=== PATIENT | female | born 2005 | race Asian ===

== ENCOUNTER 2025-05-26 14:29 | Emergency (ER) | payer MEDICAID ==
[~2025-05-26] VITALS: Ht 160 cm; Wt 75.0 kg
[2025-05-26 14:32] VITALS: O2SAT 100
[2025-05-26 16:18] LABS: BASOPHILS % 1.0 % (0.0-2.0); EOSINOPHILS % 1.1 % (0.0-5.0); HEMATOCRIT. 39.5 % (36.0-48.0); HEMOGLOBIN. 12.6 g/dL (12.0-16.0); LYMPHOCYTES % 22.2 % (20.0-50.0); MEAN PLATELET VOLUME 11.2 fl (7.4-10.4); MONOCYTES % 5.7 % (2.0-8.0); NEUTROPHILS % 70.0 % (40.0-76.0); PLATELET 276 x1000/uL (130-400); RED BLOOD CELL COUNT 4.80 mill/uL (4.2-5.4); RED CELL DISTRIBUTION WIDTH 14.8 % (11.6-14.6)
[2025-05-26 16:32] LABS: CREATININE 0.9 mg/dL (0.6-1.0); UREA NITROGEN BLOOD 9 mg/dL (9-23)
[2025-05-26 16:33] LABS: ETHANOL BLOOD < 10 mg/dL (<10)
[2025-05-26 17:38] LABS: HCG SCREEN NEGATIVE
[2025-05-26 17:41] LABS: ASPARTATE AMINOTRANSFERASE 20 IU/L (<34)
[2025-05-26 17:42] LABS: BILIRUBIN DIRECT 0.2 mg/dL (<=3.0); BILIRUBIN TOTAL 0.7 mg/dL (0.1-1.0); PROTEIN TOTAL 8.8 g/dL (6.0-8.3)
[2025-05-26 18:01] LABS: CLARITY URINE CLEAR (CLEAR); COLOR URINE YELLOW (YELLOW); GLUCOSE URINE NEGATIVE (NEGATIVE); KETONES URINE 2+ (NEGATIVE); LEUKOCYTE ESTERASE URINE 1+ (NEGATIVE); NITRITE URINE POSITIVE (NEGATIVE); OCCULT BLOOD URINE 1+ (NEGATIVE); PH URINE 6.0 (4.5-8.0); PROTEIN URINE NEGATIVE (NEGATIVE); SPECIFIC GRAVITY URINE 1.015 (1.005-1.030); UROBILINOGEN URINE 1.0 E.U./dL (0.2-1.0)
[2025-05-26 18:07] LABS: *AMPHETAMINES SCREEN URINE NEGATIVE (NEGATIVE)
[2025-05-26 18:08] LABS: *BARBITURATES SCREEN URINE NEGATIVE (NEGATIVE); *BENZODIAZEPINES SCREEN URINE NEGATIVE (NEGATIVE); *COCAINE SCREEN URINE NEGATIVE (NEGATIVE); CANNABINOID URINE SCREEN NEGATIVE (NEGATIVE); ECSTASY MDMA SCREEN URINE NEGATIVE (NEGATIVE); METHADONE URINE SCREEN NEGATIVE (NEGATIVE); OPIATES URINE SCREEN NEGATIVE (NEGATIVE); PHENCYCLIDINE URINE SCREEN NEGATIVE (NEGATIVE)
[2025-05-26 18:11] LABS: SQUAMOUS EPITHELIAL CELL URINE 1+ /lpf (RARE/1+)
[2025-05-26 18:13] LABS: BACTERIA URINE 4+
[2025-05-27] MEDS: CEPHALEXIN 250MG CAPSULE PO SCH (00:30)
[2025-05-27] MEDS ORDERED: HYDROXYZINE 25MG TABLET PO PRN (09:15)
[2025-05-27 13:38] VITALS: BP 109/66; PULSE 96; RESP 16; TEMP 36.9; O2SAT 100
[2025-05-27] MEDS ORDERED: TRAZODONE HCL 50MG TABLET PO SCH (21:00)
[2025-05-28] MEDS ORDERED: OLANZAPINE 5MG TABLET ODT PO SCH (09:00)
== END 2025-05-27 13:28 ==
LOC: ER 14:42
DX: R45.851 Suicidal ideations (principal); F25.9 Schizoaffective disorder, unspecified; Z91.51 Personal history of suicidal behavior; Z79.899 Other long term (current) drug therapy
CPT/HCPCS: 80076; 80305; 80048; 81003; 81025; 80307; 80329; 80320; 84703; 83735; 85025; 36415; 93005; 99285; 87426; Z7610; A4606; G0480

== ENCOUNTER 2025-07-04 15:21 | Emergency (ER) | payer MEDICAID, OTHER ==
[~2025-07-04] VITALS: Ht 167.6 cm; Wt 75.0 kg
[2025-07-04 15:30] VITALS: O2SAT 100
[2025-07-04 16:32] LABS: *AMPHETAMINES SCREEN URINE NEGATIVE (NEGATIVE); *BARBITURATES SCREEN URINE NEGATIVE (NEGATIVE); *BENZODIAZEPINES SCREEN URINE NEGATIVE (NEGATIVE); *COCAINE SCREEN URINE NEGATIVE (NEGATIVE); CANNABINOID URINE SCREEN NEGATIVE (NEGATIVE); ECSTASY MDMA SCREEN URINE NEGATIVE (NEGATIVE); METHADONE URINE SCREEN NEGATIVE (NEGATIVE); OPIATES URINE SCREEN NEGATIVE (NEGATIVE); PHENCYCLIDINE URINE SCREEN NEGATIVE (NEGATIVE)
[2025-07-04 16:46] LABS: BASOPHILS % 1.5 % (0.0-2.0); EOSINOPHILS % 2.1 % (0.0-5.0); HEMATOCRIT. 39.0 % (36.0-48.0); HEMOGLOBIN. 12.7 g/dL (12.0-16.0); LYMPHOCYTES % 26.1 % (20.0-50.0); MEAN PLATELET VOLUME 10.7 fl (7.4-10.4); MONOCYTES % 5.9 % (2.0-8.0); NEUTROPHILS % 64.4 % (40.0-76.0); PLATELET 269 x1000/uL (130-400); RED BLOOD CELL COUNT 4.78 mill/uL (4.2-5.4); RED CELL DISTRIBUTION WIDTH 14.6 % (11.6-14.6)
[2025-07-04 16:57] LABS: HCG SCREEN NEGATIVE
[2025-07-04 16:58] LABS: CREATININE 0.7 mg/dL (0.6-1.0); UREA NITROGEN BLOOD 8 mg/dL (9-23)
[2025-07-04 16:59] LABS: ETHANOL BLOOD < 10 mg/dL (<10)
[2025-07-04] MEDS ORDERED: DIPHENHYDRAMINE 50MG CAPSULE PO ONE (21:00)
[2025-07-04] MEDS: DIPHENHYDRAMINE 25MG CAPSULE PO SCH (21:18)
[2025-07-05 10:13] VITALS: BP 107/75; PULSE 74; RESP 16; TEMP 37; O2SAT 99
== END 2025-07-05 10:23 | disposition home or self-care (01) ==
LOC: ER 15:21
DX: R45.851 Suicidal ideations (principal); G40.909 Epilepsy, unspecified, not intractable, without status epilepticus; Z20.822 Contact with and (suspected) exposure to COVID-19
CPT/HCPCS: 80305; 80048; 80307; 80329; 80320; 84703; 85025; 36415; 99285; 87426; Q0163; G0480